=== PATIENT | male | born 1955 | race Caucasian/White ===

== ENCOUNTER → 2016-10-11 | Outpatient (CLI) | payer OTHER ==
[~2016-10-11] MED LIST: ASPI81TA28 PO; CALCTAB5 PO; CHOL100010 PO; CRAN200C PO; FLAX12003; FLAXPOW2 PO; FLUT0.15 NAE; GING250C PO; GLUC500C4 PO; MAGN1CAP2 PO; OMEG10007 PO; PSEU30TA20 PO; SILD100T PO; VITA400C28 PO; [UNRECOGNIZED DRUG - CODE] PO; tumeric PO
[2016-10-11 11:33] LABS: BLOOD UREA NITROGEN 12 mg/dl (7-18); BUN/CREATININE RATIO 11.5 (10-20)
[2016-10-11 11:42] LABS: PROSTATE SPECIFIC ANTIGEN 0.146 ng/ml (0.000-4.000)
== END | disposition home or self-care (01) ==
LOC: C.LAB1850 09:30
PROVIDERS: ATTEND Urology
DX: Z90.79 Acquired absence of other genital organ(s) (principal)

== ENCOUNTER → 2016-11-07 | Outpatient (CLI) | payer OTHER | END | disposition home or self-care (01) | LOC: C.LAB1850 11:47 | PROVIDERS: ATTEND Nurse Practitioner Family | DX: N39.0 Urinary tract infection, site not specified (principal) ==

== ENCOUNTER → 2016-11-13 | Outpatient (CLI) | payer OTHER ==
[~2016-11-13] MED LIST changes: +OPTIRAY 320 IV PRN
--- NOTE | 2016-11-13 08:06 | DIAGNOSTIC IMAGING REPORT ---
ABDOMEN AND PELVIS CT EXAMINATION PRE AND POST INTRAVENOUS CONTRAST CT DOSE: 1680.52 mGy.cm HISTORY: Material GROSS HEMATURIA TECHNIQUE: Multiaxial CT images of the abdomen and pelvis were performed pre and post intravenous contrast enhancement. COMPARISON STUDY: None. FINDINGS: Lung bases are clear. Mild fatty infiltration of liver. Gallbladder is negative for distention. Spleen is uniform. Kidneys enhance appropriately. There is 1.7 cm right renal cyst. Ureters normal in course and caliber. Bladder fills well with no significant filling defect. Patient is status post prostatectomy. Bowel pattern throughout is considered nonobstructive. There has been a prior ventral hernia repair. IMPRESSION: No acute process of the abdomen or pelvis. Small right renal cyst. Electronically signed by: Terry Romero M.D. 11/13/2016 8:05 AM Dictated Date/Time: 11/13/2016 8:00 AM
== END | disposition home or self-care (01) ==
LOC: C.CTS 06:55
PROVIDERS: ATTEND Urology
DX: R31.0 Gross hematuria (principal); N28.1 Cyst of kidney, acquired

== ENCOUNTER → 2016-11-13 | Outpatient (CLI) | payer OTHER ==
[~2016-11-13] MED LIST changes: -OPTIRAY 320 IV PRN
== END | disposition home or self-care (01) ==
LOC: C.LAB 07:58
PROVIDERS: ATTEND Urology
DX: R31.0 Gross hematuria (principal); R82.8 Abnormal findings on cytological and histological examination of urine

== ENCOUNTER → 2017-01-03 | Outpatient (CLI) | payer OTHER | END | disposition home or self-care (01) | LOC: C.LAB1850 09:34 | PROVIDERS: ATTEND Urology | DX: Z90.79 Acquired absence of other genital organ(s) (principal) ==

== ENCOUNTER → 2017-01-09 | Outpatient (CLI) | payer OTHER ==
[2016-05-09 14:07] VITALS: BP 117/69; PULSE 79
[2017-01-09 13:08] VITALS: BP 127/80; PULSE 77; TEMP 37; O2SAT 95
--- NOTE | 2017-01-09 15:00 | Radiation Oncology Follow-Up ---
Radiation Oncology Follow-Up Date of Visit January 09, 2017. Reason For Visit The patient returns for his regular scheduled 6 month follow-up visit. He was last seen on 05/09/2016. Radiation Completion Date 09/16/15 History of Present Illness Mr. Pathak is a 60-year-old male was diagnosed with prostate cancer while living in [place]. Patient's presenting prostate-specific antigen was 4.8 with 21% free prostate-specific antigen. His initial biopsies was performed on 2004. This revealed prostatic adenocarcinoma Lewis grade 3+3 involving the left mid gland only with the remainder of the biopsies benign. Pathology number [id number]. The patient was seen by Dr. Wesley Cain at [facility] who discussed treatment options with Mr. Pathak. The patient ultimately agreed to proceed with a radical retropubic prostatectomy with bilateral nerve sparing procedure. This was performed on . This procedure confirmed adenocarcinoma the prostate Lewis grade 3+4 with slight extra prostatic extension in the left anterior quadrant. Also noted was perineural invasion.. There was no carcinoma seen in the right or left seminal vesicles and no tumor at the right and left apex or right and left bladder margins. The bladder neck biopsy revealed no tumor identified. Given the low-grade lesion as based on biopsy no lymph nodes were sampled. The patient's pathologic stage was therefore pT3 pNx. Pathology number [id number]. The patient recovered well from his surgery. His urination and urinary control gradually improved as anticipated. His prostate- specific antigen became undetectable and remained undetectable until 2009. His prostate-specific antigen from 11/30/2009 was 0.10. His next available prostate- specific antigen documented was 10/26/2011 with a prostate-specific antigen value of 0.27. 12/19/2011 prostate-specific antigen 0.3 to. 10/22/2012 prostate- specific antigen 0.488. On 10/27/2013 prostate-specific antigen was 0.41. On prostate-specific antigen was 0.576. Finally on 04/14/2015 the prostate- specific antigen was 0.845. The patient's AUA score is excellent at 6. He also completed the Expanded Prostate Cancer Index Composite for Clinical Practice ( EPIC-CP). He received of one of 12 urinary incontinence symptom score, 2 of 12 urinary irritation/obstruction symptom score, 0 of 12 bowel symptom score, 2 of 12 sexual symptom score and 0 of 12 I to how he/hormonal symptom score. His Overall Prostate Cancer Quality of Life Score was 5 out of 60. With this evidence of continued rise in prostate-specific antigen post prostatectomy the patient is demonstrating evidence of recurrence and because of this we were asked to see the patient in referral to discuss the potential use of salvage radiation. At the time of this follow-up visit in April 2016 He had been doing well over the past 6 months. He has noted no change of urination. His AUA score was 5. He completed expanded prostate cancer index composite for clinical practice and gave a score of 2 of 12 and urinary incontinence symptoms. He gave a score of 212 and urinary irritation symptoms. He gave a score of 0 of 12 and bowel symptoms. He gave a score of 2 of 12 and sexual symptoms. He gave a score of 6 of 12 in hormonal vitality symptoms. He is being followed closely with PSAs every 3 months. He has a standing order from Dr. Lyn. the PSA was 0.034. On 01/13/2016 the PSA was 0.036. On 04/25/2016 his PSA was 0.070. There has been an increase in the PSA. He had previously been on hormone suppression and understands that that had brought the PSA down while under treatment. He felt his energy levels were back to normal within a month of completion of treatment. He has not had any hot flashes for several months. He had noticed no increase in ankle edema with treatment. He states he usually has small amount of swelling during the day. This goes down at night. He has had this for a extended period of time. Interim History Recently the patient has noted some increasing urinary symptoms with burning and was diagnosed with urinary tract infections twice over the past 3 months[address] He had a CT scan for hematuria on 11/13/2016 of the abdomen and pelvis. This showed no acute processes in the abdomen or pelvis. He also noted some disruption in his stream and was seen by Dr. Alexander Lyn in follow-up on 01/02. He underwent an endoscopic evaluation and was found to have a distal urethral stricture which was dilated with the flexible cystoscope. The prostate was visualized and the proximal urethra and bladder neck and prostate did appear abnormal and surgically absent. All regions of the bladder were systematically inspected and there was mild erythematous patches at the bladder neck consistent with mild radiation cystitis. The ureteral orifices were inspected and were normal. The patient was told to dilate the urethra with a 16 [place] catheter every day and then as needed. Since this initial dilatation he has catheterized himself twice. He is able to do this without significant discomfort. After the first dilatation he did feel a little resistance at the area of the stricture but following the second dilatation he felt no restriction to the passage of the catheter. He has not had episodes of repeat hematuria. His urinary stream is strong. His AUA scores a 7. His EPIC-CP Overall Prostate Cancer Quality of Life Score was 6 out of 60. The patient notes no bowel symptoms and otherwise has no changes in his medical status. He has been followed with serial prostate-specific antigens. His presenting prostate-specific antigen prior to the initiation of salvage radiation was 0.845. He was treated with IMRT and IGRT and hormonal suppression. In September 2015 prostate-specific antigen was 0.034. On 01/13/2016 prostate- specific antigen was 0.036. On 04/25/2016 prostate-specific antigen was 0.07. On 07/03/2016 prostate-specific antigen was 0.095. On 10/11/2016 prostate- specific antigen was 0.146 and on 01/03/2017 the prostate-specific antigen was 0.155. Allergies Coded Allergies: Ampicillin (Verified Allergy, Mild, Rash, 12/29/15) Tetracycline (Verified Allergy, Mild, Rash, 12/29/15) Home Medications Scheduled Aspirin (Aspirin Ec), 81 MG PO QAM Calcium (Caltrate), 600 MG PO QAM Cholecalciferol (Vitamin D), 3,000 INTER.UNIT PO QAM Chromium Picolinate (Chromium Picolinate Awais), 1 CAP PO DAILY Cranberry (Vaccinium Macrocarp (Cranberry Extract), 1 CAP PO DAILY Fish Oil (Dixon-3), 1 CAP PO BID Flaxseed (Linseed) (Flax Seeds), 2 TBS PO 3XWK Fluticasone Propionate (Nasal) (Flonase Allergy Relief), 1 SPRAY YOLANDA HS Yashira (Zingiber Officinalis) (Yashira Extract), 1 CAP PO DAILY Glucosamine Sulfate (Glucosamine), 1 CAP PO QAM Magnesium Oxide (Mg Supplement (Magnesium), 1 CAP PO Q2D Vitamin E (Alph-E), 1 CAP PO QAM [tumeric], 1 CAP PO DAILY Scheduled PRN Pseudoephedrine (Sudafed), 30 MG PO DAILY PRN for PRN Sildenafil Citrate (Viagra), 1 TAB PO DAILY PRN for ED Review of Systems Gastrointestinal: Symptoms: WNL Oral: Symptoms: No Problems Respiratory: Symptoms: WNL Respiratory Comments: Recovering SOB from bronchitis Urinary: Symptoms: Pain, Burning, Frequency Comments: Drinks a lot of water, patient straight cathing Q2D due to stricture Skin: Symptoms: No Problems Physical Exam Vital Signs Date Time Temp Pulse Resp B/P Pulse Ox O2 Delivery O2 Flow Rate FiO2 01/09/17 13:08 37.0 77 16 127/80 95 Pain: Side: Bilateral Pain Location: None Patient Pain Scale: 0 - 10 Initial Pain Intensity: 0.0 General Appearance: WD/WN, no apparent distress Eyes: normal inspection ENT: normal ENT inspection Neck: supple, no adenopathy, no carotid bruits Respiratory/Chest: chest non-tender, lungs clear, normal breath sounds Cardiovascular: regular rate, rhythm, no edema Abdomen: non tender, soft, no organomegaly Genitourinary - Male: The penis was circumcised and unremarkable testicles were descended without abnormalities. Anal / Rectum: On digital rectal exam there was good sphincter tone. The prostate bed was without nodularity or induration. No rectal mucosal (modality was noted. There was no blood on the examining finger. 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 Pathak is a 61-year-old male who presented with a rising prostate- specific antigen post radical prostatectomy. He was treated with salvage radiation completing on 09/16/2015 and a dose of 74 Gy along with a short course of hormonal suppression. His presenting prostate-specific antigen at that time was 0.845. This promptly dropped to 0.34. Since then it has slowly risen and the most recent value was 0.155. It is potentially consistent with a failure of the salvage treatment with a slowly rising prostate-specific antigen. The most recent prostate-specific antigen was drawn 1 day after the dilatation although without prostate tissue would likely have no impact. The patient is doing well and is contemplating moving to [place]. I have encouraged him to did in touch with a urologist for continued follow-up and repeat prostate-specific antigens. I told him that we will be happy to send all her records to his call or contact centre team leader. Presently he is having a slowly rising prostate-specific antigen but the decision if the prostate-specific antigen continues to rise of when to intervene will be made by his local urologist. If the patient does not title he will make a repeat appointment to see us in one year's time. He will also continue to be followed locally by Dr. Lyn. Thank you for allowing us to participate in the care of this patient. This chart was completed in part utilizing [employer] Speech Voice Recognition software. Attempts were made to minimize the grammatical errors, random word insertions, pronoun errors and incomplete sentences. Any formal questions or concerns about the content, text or information contained within the body of this dictation should be directly addressed to the provider for clarification. Derrick Kim MD Department of Radiation Oncology [facility] and Amina Farrell [facility] Total Time In Follow-Up I spent 15 minutes in discussion and examination of this patient and 10 minutes reviewing his chart and perforation of this document. Copy To RV. Feldman MD; Alexander Lyn MD, Urology
== END | disposition home or self-care (01) ==
LOC: C.ONC 12:53
PROVIDERS: ATTEND Physician Assistant Medical
DX: Z08 Encounter for follow-up examination after completed treatment for malignant neoplasm (principal); Z92.3 Personal history of irradiation; Z85.46 Personal history of malignant neoplasm of prostate